=== PATIENT | male | born 1995 | race African-American/Black ===

== ENCOUNTER 2019-08-02 16:47 | Emergency (ER) | payer BC ==
--- NOTE | 2019-08-02 17:10 | EDM.PDOC ---
ED HPI GENERAL MEDICAL PROBLEM - General Chief Complaint: Allergic Reaction Stated Complaint: ALLERGIC REACTION Time Seen by Provider: 08/02/19 17:08 Source of Information: Reports: Patient History Limitations: Reports: No Limitations - History of Present Illness INITIAL COMMENTS - FREE TEXT/NARRATIVE: 23-year-old male who reports awakening 2 nights ago with itching on his neck and noticed a couple spots in this area. The following morning he noticed that he had some redness and itching over the outside of his right hand as well. Since that time he has persisted with the itching areas of rash on his neck that has not really gotten any worse but the pain, swelling and redness in his right hand has progressively worsened. It seems to be spreading up into his distal forearm. He reports the pain has progressively worsened with time as well. He rates pain as a 7/10. It is an aching and throbbing pain that is sharp with movement and palpation. He has had no fevers or chills. No nausea or vomiting. No difficulty breathing. There are no other areas of redness or rash. He doesn't know of anything that caused this. He was supposing bug bites but he does not remember being bitten by any bugs and he reports that he was completely asymptomatic the night prior to this occurring. There are no other associated signs or symptoms. There are no other modifying factors. Onset: Other (2 days ago) Duration: Getting Worse Location: Reports: Neck, Upper Extremity, Right (Right hand) Quality: Reports: Ache, Sharp, Throbbing Severity: Moderate Improves with: Reports: Rest Worsens with: Reports: Other (Palpation), Movement Context: Reports: Other (As above) Associated Symptoms: Reports: No Other Symptoms Treatments [employer]: Reports: Other (see below) (Nothing) Right hand Pain Score (Numeric/FACES): 7 - Related Data Allergies Allergy/AdvReac Type Severity Reaction Status Date / Time No Known Allergies Allergy Verified 08/02/19 17:09 Home Meds: Home Meds cephALEXin [Keflex] 750 mg PO TID 10 Days #90 cap 08/02/19 [Rx] Past Medical History - Past Health History Medical/Surgical History: Denies Medical/Surgical History (No chronic medical problems. 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.) ED ROS ALLERGIC REACTION - Review of Systems Review Of Systems: See Below Constitutional: Denies: Fever, Chills HEENT: Reports: No Symptoms Respiratory: Reports: No Symptoms Cardiovascular: Reports: No Symptoms Endocrine: Reports: No Symptoms GI/Abdominal: Reports: No Symptoms : Reports: No Symptoms Musculoskeletal: Reports: Other (Right hand with redness and swelling) Skin: Reports: Erythema Neurological: Reports: No Symptoms ED EXAM GENERAL NO PERIP PULSE - Physical Exam Exam: See Below Exam Limited By: No Limitations General Appearance: Alert, WD/WN, Mild Distress (He is nontoxic appearing though.) Eye Exam: Bilateral Eye: EOMI, Normal Inspection, PERRL Ears: Normal External Exam, Hearing Grossly Normal Nose: Normal Inspection, Normal Mucosa, No Blood Throat/Mouth: Normal Inspection, Normal Lips, Normal Oropharynx, Normal Voice, No Airway Compromise Head: Atraumatic, Normocephalic Neck: Supple, Non-Tender, Full Range of Motion, Other (Rash on left neck) Respiratory/Chest: No Respiratory Distress, Lungs Clear, Normal Breath Sounds, No Accessory Muscle Use, Chest Non-Tender Cardiovascular: Normal Peripheral Pulses, Regular Rate, Rhythm, No JVD GI/Abdominal: Normal Bowel Sounds, Soft, Non-Tender, No Distention Back Exam: Normal Inspection, Full Range of Motion Extremities: Increased Warmth, Other (Right hand pain with redness and swelling. He has full active range of motion in the right hand. There is no evidence of tenosynovitis. He has no tenderness over the deep space area of the right hand.) Neurological: Alert, Oriented, CN II-XII Intact, Normal Cognition, No Motor/ Sensory Deficits Skin Exam: Warm, Dry, Intact, No Rash, Erythema, Increased Warmth, Other (And swelling over the dorsal ulnar aspect of the right hand, wrist and distal forearm. There is increased warmth in this area. There are no open wounds. There is no fluctuant area.) Course - Vital Signs Last Recorded V/S: Last Vital Signs Temp 36.8 C 08/02/19 17:29 Pulse 84 08/02/19 17:29 Resp 16 08/02/19 17:29 BP 124/76 08/02/19 17:29 Pulse Ox 100 08/02/19 17:29 - Re-Assessments/Exams Free Text/Narrative Re-Assessment/Exam: 08/02/19 17:19: Patient with apparent infection/cellulitis in right hand. He also has an area on his right hand and his left neck that appear to be insect bites or an allergic response. He does not appear toxic. He is having no evidence of anaphylaxis or respiratory type problems. I will have the patient take Benadryl as needed for itching and ibuprofen as needed for pain. I will also place the patient on Keflex for the next 10 days. Precautions and reasons for return to the emergency department were discussed with the patient prior to discharge. Departure - Departure Time of Disposition: 17:25 Disposition: Home, Self-Care 01 Condition: Good Clinical Impression: Cellulitis of right hand, Rash - Discharge Information Prescriptions: cephALEXin [Keflex] 750 mg PO TID 10 Days #90 cap Instructions: Allergies, Adult, [id number], Cellulitis, Adult, [id number] Referrals: PCP,None [Primary Care Provider] - Forms: ED Department Discharge, ED Return to Work/School Form Additional Instructions: You appear to have an infection or cellulitis of your right hand. Those places on your right hand and your left neck may be insect bites or some type of other allergic reaction. You may take Benadryl D milligrams by mouth every 6 hours as needed for itching/allergic reaction. You may also take ibuprofen 600-800 mg by mouth every 6-8 hours as needed for pain. Medication as prescribed (Keflex 250 mg). Take probiotics or eat yogurt daily while you are on the antibiotics. No use with your right hand for the next 3 days. Back to the emergency department for marked increase in pain, increasing redness, increasing swelling, fever or any other concerning sign or symptom.
== END 2019-08-02 17:32 | disposition home or self-care (01) ==
LOC: FB.ED 16:47
DX: L03.113 Cellulitis of right upper limb (principal); R21 Rash and other nonspecific skin eruption
CPT/HCPCS: 99283

== ENCOUNTER 2021-05-25 10:41 | Observation (INO) | payer BC, MEDICAID ==
[2021-05-25] MEDS ORDERED: Morphine 4 MG/ML VIAL IVPUSH STA (11:01)
[2021-05-25] MEDS ORDERED: Ketorolac 30 MG/ML SDV IVPUSH STA (11:01)
[2021-05-25] MEDS: Sodium Chloride 0.9% 10 ML Syringe FLUSH PRN (11:05)
[2021-05-25] MEDS ORDERED: Sodium Chloride 0.9% 1,000 ML IV SCH ×3 (11:15→12:30)
[2021-05-25] MEDS ORDERED: Iopamidol 755 Mg/ML 75 ML Bottle IV ONE (11:19)
--- NOTE | 2021-05-25 12:12 | EDM.PDOC ---
ED HPI GENERAL MEDICAL PROBLEM - General Chief Complaint: Abdominal Pain Stated Complaint: PANCREATITIS Time Seen by Provider: 05/25/21 10:50 Source of Information: Reports: Patient History Limitations: Reports: No Limitations - History of Present Illness INITIAL COMMENTS - FREE TEXT/NARRATIVE: Patient presented to the ED because of abdominal pain over the epigastric and LUQ which started yesterday. The pain is sharp,10/10. There is no associated N/V/D. there is no fever, chills, cough/cold symptoms. There is no urinary symptoms or changes in bowel movements. Patient has a history of alcoholism and pancreatitis as a result of his alcoholism.He drinks 1/2-1 liter of vodka daily. His last drink was at 8 pm last night. Abdomen Pain Score (Numeric/FACES): 10 - Related Data Allergies Allergy/AdvReac Type Severity Reaction Status Date / Time No Known Allergies Allergy Verified 05/25/21 10:58 Home Meds: Home Meds Acetaminophen [Tylenol Extra Strength] 500 mg PO ASDIRECTED PRN 05/25/21 [History] Past Medical History - Past Health History Medical/Surgical History: Denies Medical/Surgical History (No chronic medical problems. 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.) ED ROS GENERAL - Review of Systems Review Of Systems: See Below Constitutional: Reports: No Symptoms HEENT: Reports: No Symptoms Respiratory: Reports: No Symptoms Cardiovascular: Reports: No Symptoms Endocrine: Reports: No Symptoms GI/Abdominal: Reports: Abdominal Pain : Reports: No Symptoms Musculoskeletal: Reports: No Symptoms, Neck Pain Skin: Reports: No Symptoms Neurological: Reports: No Symptoms Psychiatric: Reports: No Symptoms ED EXAM, GI/ABD - Physical Exam Exam: See Below Exam Limited By: No Limitations General Appearance: Alert, No Apparent Distress Ears: Normal External Exam, Normal Canal Nose: Normal Inspection, Normal Mucosa, No Blood Throat/Mouth: Normal Inspection, Normal Lips, Normal Teeth Head: Atraumatic, Normocephalic Neck: Normal Inspection Respiratory/Chest: No Respiratory Distress, Lungs Clear, Normal Breath Sounds, No Accessory Muscle Use, Chest Non-Tender Cardiovascular: Normal Peripheral Pulses, Regular Rate, Rhythm, No Edema, No Gallop, No JVD, No Murmur, No Rub GI/Abdominal Exam: Normal Bowel Sounds, Soft, Other (tenderness over the epihastric area and LUQ) Back Exam: Normal Inspection Extremities: Normal Inspection, Normal Range of Motion, Non-Tender Neurological: Alert, Oriented, CN II-XII Intact Psychiatric: Normal Affect, Normal Mood Skin Exam: Warm Course - Vital Signs Text/Narrative:: Lab/CT abd-pelvis result was reviewed and discussed with patient NPO NS 1 L bolus Toradol 30 mg IV x1 Morphine 4 mg IV x1 Last Recorded V/S: Last Vital Signs Temp 36.5 C 05/25/21 10:45 Pulse 97 05/25/21 10:45 Resp 18 05/25/21 10:45 BP 153/106 H 05/25/21 10:45 Pulse Ox 100 05/25/21 10:45 - Orders/Labs/Meds Orders: Active Orders 24 hr Category Date Time Status Sodium Chloride 0.9% [Normal Saline] 1,000 ml Med 05/25/21 11:15 Active IV ASDIRECTED Sodium Chloride 0.9% [Normal Saline] 1,000 ml Med 05/25/21 12:20 Active IV ASDIRECTED Sodium Chloride 0.9% [Saline Flush] Med 05/25/21 11:05 Active 10 ml FLUSH ASDIRECTED PRN Saline Lock Insert [OM.PC] Routine Oth 05/25/21 11:05 Ordered Medication Orders Sodium Chloride (Normal Saline) 1,000 mls @ 999 mls/hr IV ASDIRECTED SAMREEN Last Admin: 05/25/21 11:09 Dose: 999 mls/hr Documented by: SYLVIA Sodium Chloride (Normal Saline) 1,000 mls @ 125 mls/hr IV ASDIRECTED SAMREEN Last Admin: 05/25/21 12:30 Dose: 125 mls/hr Documented by: ARIAN Sodium Chloride (Sodium Chloride 0.9% 10 Ml Syringe) 10 ml FLUSH ASDIRECTED PRN PRN Reason: Keep Vein Open Last Admin: 05/25/21 11:05 Dose: 10 ml Documented by: ARIAN Labs: Laboratory Tests 05/25/21 05/25/21 05/25/21 Range/Units 11:25 11:25 11:25 WBC 10.0 (3.2-10.1) x10-3/uL RBC 4.53 (3.90-5.90) x10(6)uL Hgb 15.0 (12.9-17.7) g/dL Hct 44.2 (38.3-50.1) % MCV 97.6 (80.8-98.7) fL MCH 33.1 (27.0-33.3) pg MCHC 33.9 (28.7-35.3) g/dL RDW 15.5 H (12.4-15.0) % Plt Count 138 (117-477) x10(3)uL MPV 9.1 (6.7-11.0) fL Neut % (Auto) 82.9 H (40.3-71.8) % Lymph % (Auto) 10.7 L (15.8-45.3) % Ralls % (Auto) 5.4 L (5.5-15.2) % Eos % (Auto) 0.8 (0.1-6.8) % Baso % (Auto) 0.2 L (0.3-3.8) % Neut # (Auto) 8.3 H (1.7-6.9) x10-3/uL Lymph # (Auto) 1.1 (0.5-4.5) x10-3/uL Ralls # (Auto) 0.5 (0.0-1.2) x10-3/uL Eos # (Auto) 0.1 (0.0-0.6) x10-3/uL Baso # (Auto) 0.0 (0.0-0.3) x10-3/uL Sodium 139 (135-145) mmol/L Potassium 3.6 (3.5-5.3) mmol/L Chloride 100 (100-110) mmol/L Carbon Dioxide 24 (21-32) mmol/L BUN 6 L (7-18) mg/dL Creatinine 0.9 (0.70-1.30) mg/dL Est Cr Clr Drug Dosing 105.20 mL/min Estimated GFR (MDRD) > 60 (>60) BUN/Creatinine Ratio 6.7 L (9-20) Glucose 125 H (80-116) mg/dL Calcium 9.4 (8.6-10.2) mg/dL Total Bilirubin 1.1 (0.1-1.3) mg/dL AST 89 H (5-25) IU/L ALT 72 H (12-36) U/L Alkaline Phosphatase 91 (56-112) IU/L Total Protein 8.1 H (6.0-8.0) g/dL Albumin 4.3 (3.5-5.2) g/dL Globulin 3.8 g/dL Albumin/Globulin Ratio 1.1 Amylase 177 H (25-115) U/L Lipase > 1500 H (73-393) U/L Urine Color (YELLOW) Urine Appearance (CLEAR) Urine pH (5.0-6.5) Ur Specific [place] (1.010-1.025) Urine Protein (NEGATIVE) mg/dL Urine Glucose (UA) (NORMAL) mg/dL Urine Ketones (NEGATIVE) mg/dL Urine Occult Blood (NEGATIVE) Urine Nitrite (NEGATIVE) Urine Bilirubin (NEGATIVE) Urine Urobilinogen (NEGATIVE) mg/dL Ur Leukocyte Esterase (NEGATIVE) Urine RBC (0-5) Urine WBC (0-5) Ur Squamous Epith Cells (NS,R,O) Urine Bacteria (NS) Ethyl Alcohol (<0.03) % SARS-CoV-2 RNA (PAULINE) (NEGATIVE) 05/25/21 05/25/21 05/25/21 Range/Units 11:25 12:02 12:26 WBC (3.2-10.1) x10-3/uL RBC (3.90-5.90) x10(6)uL Hgb (12.9-17.7) g/dL Hct (38.3-50.1) % MCV (80.8-98.7) fL MCH (27.0-33.3) pg MCHC (28.7-35.3) g/dL RDW (12.4-15.0) % Plt Count (117-477) x10(3)uL MPV (6.7-11.0) fL Neut % (Auto) (40.3-71.8) % Lymph % (Auto) (15.8-45.3) % Ralls % (Auto) (5.5-15.2) % Eos % (Auto) (0.1-6.8) % Baso % (Auto) (0.3-3.8) % Neut # (Auto) (1.7-6.9) x10-3/uL Lymph # (Auto) (0.5-4.5) x10-3/uL Ralls # (Auto) (0.0-1.2) x10-3/uL Eos # (Auto) (0.0-0.6) x10-3/uL Baso # (Auto) (0.0-0.3) x10-3/uL Sodium (135-145) mmol/L Potassium (3.5-5.3) mmol/L Chloride (100-110) mmol/L Carbon Dioxide (21-32) mmol/L BUN (7-18) mg/dL Creatinine (0.70-1.30) mg/dL Est Cr Clr Drug Dosing mL/min Estimated GFR (MDRD) (>60) BUN/Creatinine Ratio (9-20) Glucose (80-116) mg/dL Calcium (8.6-10.2) mg/dL Total Bilirubin (0.1-1.3) mg/dL AST (5-25) IU/L ALT (12-36) U/L Alkaline Phosphatase (56-112) IU/L Total Protein (6.0-8.0) g/dL Albumin (3.5-5.2) g/dL Globulin g/dL Albumin/Globulin Ratio Amylase (25-115) U/L Lipase (73-393) U/L Urine Color Yellow (YELLOW) Urine Appearance Clear (CLEAR) Urine pH 6.0 (5.0-6.5) Ur Specific [place] 1.015 (1.010-1.025) Urine Protein Negative (NEGATIVE) mg/dL Urine Glucose (UA) Normal (NORMAL) mg/dL Urine Ketones 15 H (NEGATIVE) mg/dL Urine Occult Blood Negative (NEGATIVE) Urine Nitrite Negative (NEGATIVE) Urine Bilirubin Negative (NEGATIVE) Urine Urobilinogen Normal (NEGATIVE) mg/dL Ur Leukocyte Esterase Negative (NEGATIVE) Urine RBC Not seen (0-5) Urine WBC 0-5 (0-5) Ur Squamous Epith Cells Rare (NS,R,O) Urine Bacteria Occasional H (NS) Ethyl Alcohol < 0.03 (<0.03) % SARS-CoV-2 RNA (PAULINE) Negative (NEGATIVE) Meds: Medications Generic Name Dose Route Start Last Admin Trade Name Freq PRN Reason Stop Dose Admin Sodium Chloride 1,000 mls @ 999 mls/hr 05/25/21 11:15 05/25/21 11:09 Normal Saline IV 999 mls/hr ASDIRECTED SAMREEN Administration Sodium Chloride 1,000 mls @ 125 mls/hr 05/25/21 12:20 05/25/21 12:30 Normal Saline IV 125 mls/hr ASDIRECTED SAMREEN Administration Sodium Chloride 10 ml 05/25/21 11:05 05/25/21 11:05 Sodium Chloride 0.9% 10 Ml Syringe FLUSH 10 ml ASDIRECTED PRN Administration Keep Vein Open Discontinued Medications Generic Name Dose Route Start Last Admin Trade Name Huanq PRN Reason Stop Dose Admin Sodium Chloride 1,000 mls @ 999 mls/hr 05/25/21 12:30 Normal Saline IV ASDIRECTED SAMREEN Iopamidol 75 ml 05/25/21 11:19 05/25/21 11:40 Iopamidol 755 Mg/Ml 75 Ml Bottle IV 05/25/21 11:20 68 ml ONETIME ONE Administration Ketorolac Tromethamine 30 mg 05/25/21 11:01 05/25/21 11:08 Ketorolac 30 Mg/Ml Sdv IVPUSH 05/25/21 11:02 30 mg NOW STA Administration Morphine Sulfate 4 mg 05/25/21 11:01 05/25/21 11:08 Morphine 4 Mg/Ml Vial IVPUSH 05/25/21 11:02 4 mg NOW STA Administration Departure - Departure Time of Disposition: 13:00 Disposition: Refer to Observation Condition: Good Clinical Impression: Acute pancreatitis, Alcoholism - Discharge Information Referrals: PCP,None [Primary Care Provider] - Forms: ED Department Discharge Sepsis Event Note (ED) - Evaluation Sepsis Screening Result: Possible Sepsis Risk - Focused Exam Vital Signs: Vital Signs Temp Pulse Resp BP Pulse Ox 05/25/21 10:45 36.5 C 97 18 153/106 H 100 - My Orders Last 24 Hours: My Active Orders 05/25/21 11:05 Sodium Chloride 0.9% [Saline Flush] 10 ml FLUSH ASDIRECTED PRN Saline Lock Insert [OM.PC] Routine 05/25/21 11:15 Sodium Chloride 0.9% [Normal Saline] 1,000 ml IV ASDIRECTED 05/25/21 12:20 Sodium Chloride 0.9% [Normal Saline] 1,000 ml IV ASDIRECTED - Assessment/Plan Last 24 Hours: My Active Orders 05/25/21 11:05 Sodium Chloride 0.9% [Saline Flush] 10 ml FLUSH ASDIRECTED PRN Saline Lock Insert [OM.PC] Routine 05/25/21 11:15 Sodium Chloride 0.9% [Normal Saline] 1,000 ml IV ASDIRECTED 05/25/21 12:20 Sodium Chloride 0.9% [Normal Saline] 1,000 ml IV ASDIRECTED
--- NOTE | 2021-05-25 12:43 | CT ---
INDICATION: Abdominal pain. CT ABDOMEN AND PELVIS WITH CONTRAST: Spiral 3.75 mm axial sections were obtained through the abdomen with 68 mL of Isovue-370 at 1.9 cc/sec with sagittal and coronal reconstructions 05/25/21 - no comparisons. Total exam DLP was 363.59 milligray-cm. The lower lung vallejo and pleural spaces visualized appeared normal. The heart did not appear enlarged. No pericardial effusion was seen. The liver is enlarged and markedly low in density compatible with severe fatty liver. There is some fatty sparing in the inferior peripheral right lobe of the liver and peripherally in the right and left lobes near the diaphragm. No definite ductal dilatation was seen. No definite gallstones were seen. There is fluid surrounding the anterior posterior aspect of the pancreas extending inferiorly into the right paracolic gutter to a mild degree and just barely into the pelvis on the right centrally. Findings are compatible with pancreatitis with phlegmon of moderate degree with mostly the head of the pancreas appearing to be involved. The spleen appeared normal. The adrenal glands and kidneys were felt to be normal. There is also noted free fluid in the pelvis which likely is on the basis of pancreatitis. It extends into the post-vesicular pre-rectal area. No other retroperitoneal abnormality was identified. The appendix appeared normal visualized on axial images 85 to 90 and coronal images 35 to 48. No evidence of free air or bowel obstruction was identified. There is a dilated loop of jejunum which may be on the basis of paralytic ileus. Gas and stool is noted in the rectum. Bony structures appeared grossly intact. IMPRESSION: 1. Pancreatitis with phlegmon - fluid extending inferior to the pancreas into the paracolic gutter and into the pelvis. 2. Normal-appearing appendix. 3. Abnormal liver which appears enlarged and markedly low in density suggesting a severe fatty liver although a severe inflammatory process could also be present. Report was called to Dr. Miranda at 1207 hours 05/25/21. [facility]
[2021-05-25] MEDS ORDERED: Ondansetron 4 MG/2 ML SDV IV PRN (15:24)
[2021-05-25] MEDS ORDERED: Acetaminophen 650 MG Supp RECTAL PRN (15:27)
[2021-05-25] MEDS ORDERED: LORazepam 2 MG/ML SDV IVPUSH PRN (15:28)
[2021-05-25] MEDS: Morphine 4 MG/ML VIAL IVPUSH PRN ×2 (15:41→20:35)
[2021-05-25] MEDS: Ketorolac 30 MG/ML SDV IVPUSH SCH ×2 (16:52→23:41)
--- NOTE | 2021-05-25 17:09 | PCM.HP.2 ---
H&P History of Present Illness - General Date of Service: 05/25/21 Admit Problem/Dx: Admission Diagnosis/Problem Admission Diagnosis/Problem Acute pancreatitis Source of Information: Patient History Limitations: Reports: No Limitations - History of Present Illness Initial Comments - Free Text/Narative: Kera presented to ER today for worsening abdominal pain. History of chronic alcohol induced pancreatitis. He states that he started having kidney pain about 2 days ago, so was drinking mainly water and alcohol as that is how his previous pancreatitis episodes started and then started having abdominal pain yesterday. Shortness of breath with the pain. Locates pain mainly in LUQ, rates 7/10 now. Nausea but no vomiting or diarrhea. He has 2-3 bowel movements a day which are regular. His last drink was last night around 8 pm. He lost his uncle in the past week and states he has been drinking heavier since. Denies any fevers, chills, sore throat, cough, chest pain, dysuria, frequency, hematuria, rash. He has had tremors and diaphoresis in past with alcohol withdrawal but no episodes of withdrawal seizures or hallucinations. He took some Tylenol yesterday for pa in but did not help. In ER: WBC 10.0. Lipase >1500, Amylase 177. EtOH <0.03. Covid negative. CT lucy wed acute pancreatitis. Chemistry unremarkable. AST 89, ALT 72. UA 15 ketones otherwise negative. Received Toradol, Morphine 4 mg and 1 liter of NS in the ER, pain came down from 10/10 to 7/10. Abdomen Pain Score (Numeric/FACES): 7 - Related Data Allergies/Adverse Reactions: Allergies Allergy/AdvReac Type Severity Reaction Status Date / Time No Known Allergies Allergy Verified 05/25/21 10:58 Home Medications: Home Meds Acetaminophen [Tylenol Extra Strength] 500 mg PO ASDIRECTED PRN 05/25/21 [History] Past Medical History - Past Health History Medical/Surgical History: Denies Medical/Surgical History (No chronic medical problems. Surgical history as detailed below.) Gastrointestinal History: Reports: Fatty Liver, Pancreatitis - Past Surgical History Musculoskeletal Surgical History: Reports: ORIF Other Musculoskeletal Surgeries/Procedures:: Hand surgery Social & Family History - Tobacco Use Tobacco Use Status *Q: Former Tobacco User Years of Tobacco use: 2 Used Tobacco, but Quit: No Second Hand Smoke Exposure: No - Caffeine Use Caffeine Use: Reports: None - Alcohol Use Days Per Week of Alcohol Use: 7 Number of Drinks Per Day: 1 Total Drinks Per Week: 7 Date of Last Drink: 05/24/21 Time of Last Drink: 20:00 - Recreational Drug Use Recreational Drug Use: No - Living Situation & Occupation 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 Exam - Exam Exam: See Below - Vital Signs Vital Signs: Last Vital Signs Temp 97.3 F 05/25/21 14:44 Pulse 65 05/25/21 14:44 Resp 19 05/25/21 14:44 BP 145/103 H 05/25/21 14:44 Pulse Ox 100 05/25/21 14:44 Weight: 133 lb - Exam General: Alert, Oriented, Cooperative. No: Mild Distress HEENT: PERRLA, EOMI, Hearing Intact, Mucosa Moist & [place], Posterior Pharynx Clear Neck: Supple, Trachea Midline Lungs: Clear to Auscultation, Normal Respiratory Effort Cardiovascular: Regular Rate, Regular Rhythm GI/Abdominal Exam: Normal Bowel Sounds, Soft, No Distention, Guarding, Rebound, Tender (LUQ, mild TTP other quadrants) (Male) Exam: Deferred Rectal (Males) Exam: Deferred Extremities: No Pedal Edema, Normal Capillary Refill Peripheral Pulses: 2+: Radial (L), Radial (R), Dorsalis Pedis (L), Dorsalis Pedis (R) Skin: Warm, Dry, Intact Neuro Extensive - Motor, Sensory, Reflexes: CN II-XII Intact, Normal Gait. No: Tremor Psychiatric: No: Withdrawal Symptoms - Patient Data Lab Results Last 24 hrs: Laboratory Results - last 24 hr 05/25/21 05/25/21 05/25/21 Range/Units 11:25 11:25 11:25 WBC 10.0 (3.2-10.1) x10-3/uL RBC 4.53 (3.90-5.90) x10(6)uL Hgb 15.0 (12.9-17.7) g/dL Hct 44.2 (38.3-50.1) % MCV 97.6 (80.8-98.7) fL MCH 33.1 (27.0-33.3) pg MCHC 33.9 (28.7-35.3) g/dL RDW 15.5 H (12.4-15.0) % Plt Count 138 (117-477) x10(3)uL MPV 9.1 (6.7-11.0) fL Neut % (Auto) 82.9 H (40.3-71.8) % Lymph % (Auto) 10.7 L (15.8-45.3) % [place] % (Auto) 5.4 L (5.5-15.2) % Eos % (Auto) 0.8 (0.1-6.8) % Baso % (Auto) 0.2 L (0.3-3.8) % Neut # (Auto) 8.3 H (1.7-6.9) x10-3/uL Lymph # (Auto) 1.1 (0.5-4.5) x10-3/uL [place] # (Auto) 0.5 (0.0-1.2) x10-3/uL Eos # (Auto) 0.1 (0.0-0.6) x10-3/uL Baso # (Auto) 0.0 (0.0-0.3) x10-3/uL Sodium 139 (135-145) mmol/L Potassium 3.6 (3.5-5.3) mmol/L Chloride 100 (100-110) mmol/L Carbon Dioxide 24 (21-32) mmol/L BUN 6 L (7-18) mg/dL Creatinine 0.9 (0.70-1.30) mg/dL Est Cr Clr Drug Dosing 105.20 mL/min Estimated GFR (MDRD) > 60 (>60) BUN/Creatinine Ratio 6.7 L (9-20) Glucose 125 H (80-116) mg/dL Calcium 9.4 (8.6-10.2) mg/dL Total Bilirubin 1.1 (0.1-1.3) mg/dL AST 89 H (5-25) IU/L ALT 72 H (12-36) U/L Alkaline Phosphatase 91 (56-112) IU/L Total Protein 8.1 H (6.0-8.0) g/dL Albumin 4.3 (3.5-5.2) g/dL Globulin 3.8 g/dL Albumin/Globulin Ratio 1.1 Amylase 177 H (25-115) U/L Lipase > 1500 H (73-393) U/L Urine Color (YELLOW) Urine Appearance (CLEAR) Urine pH (5.0-6.5) Ur Specific [place] (1.010-1.025) Urine Protein (NEGATIVE) mg/dL Urine Glucose (UA) (NORMAL) mg/dL Urine Ketones (NEGATIVE) mg/dL Urine Occult Blood (NEGATIVE) Urine Nitrite (NEGATIVE) Urine Bilirubin (NEGATIVE) Urine Urobilinogen (NEGATIVE) mg/dL Ur Leukocyte Esterase (NEGATIVE) Urine RBC (0-5) Urine WBC (0-5) Ur Squamous Epith Cells (NS,R,O) Urine Bacteria (NS) Ethyl Alcohol (<0.03) % SARS-CoV-2 RNA (PAULINE) (NEGATIVE) 05/25/21 05/25/21 05/25/21 Range/Units 11:25 12:02 12:26 WBC (3.2-10.1) x10-3/uL RBC (3.90-5.90) x10(6)uL Hgb (12.9-17.7) g/dL Hct (38.3-50.1) % MCV (80.8-98.7) fL MCH (27.0-33.3) pg MCHC (28.7-35.3) g/dL RDW (12.4-15.0) % Plt Count (117-477) x10(3)uL MPV (6.7-11.0) fL Neut % (Auto) (40.3-71.8) % Lymph % (Auto) (15.8-45.3) % [place] % (Auto) (5.5-15.2) % Eos % (Auto) (0.1-6.8) % Baso % (Auto) (0.3-3.8) % Neut # (Auto) (1.7-6.9) x10-3/uL Lymph # (Auto) (0.5-4.5) x10-3/uL [place] # (Auto) (0.0-1.2) x10-3/uL Eos # (Auto) (0.0-0.6) x10-3/uL Baso # (Auto) (0.0-0.3) x10-3/uL Sodium (135-145) mmol/L Potassium (3.5-5.3) mmol/L Chloride (100-110) mmol/L Carbon Dioxide (21-32) mmol/L BUN (7-18) mg/dL Creatinine (0.70-1.30) mg/dL Est Cr Clr Drug Dosing mL/min Estimated GFR (MDRD) (>60) BUN/Creatinine Ratio (9-20) Glucose (80-116) mg/dL Calcium (8.6-10.2) mg/dL Total Bilirubin (0.1-1.3) mg/dL AST (5-25) IU/L ALT (12-36) U/L Alkaline Phosphatase (56-112) IU/L Total Protein (6.0-8.0) g/dL Albumin (3.5-5.2) g/dL Globulin g/dL Albumin/Globulin Ratio Amylase (25-115) U/L Lipase (73-393) U/L Urine Color Yellow (YELLOW) Urine Appearance Clear (CLEAR) Urine pH 6.0 (5.0-6.5) Ur Specific [place] 1.015 (1.010-1.025) Urine Protein Negative (NEGATIVE) mg/dL Urine Glucose (UA) Normal (NORMAL) mg/dL Urine Ketones 15 H (NEGATIVE) mg/dL Urine Occult Blood Negative (NEGATIVE) Urine Nitrite Negative (NEGATIVE) Urine Bilirubin Negative (NEGATIVE) Urine Urobilinogen Normal (NEGATIVE) mg/dL Ur Leukocyte Esterase Negative (NEGATIVE) Urine RBC Not seen (0-5) Urine WBC 0-5 (0-5) Ur Squamous Epith Cells Rare (NS,R,O) Urine Bacteria Occasional H (NS) Ethyl Alcohol < 0.03 (<0.03) % SARS-CoV-2 RNA (PAULINE) Negative (NEGATIVE) Result Diagrams: 05/25/21 11:25 05/25/21 11:25 Sepsis Event Note - Evaluation Sepsis Screening Result: Possible Sepsis Risk - Focused Exam Vital Signs: Vital Signs Temp Pulse Resp BP Pulse Ox 05/25/21 14:44 97.3 F 65 19 145/103 H 100 05/25/21 10:45 97.7 F 97 18 153/106 H 100 *Q Meaningful Use (ADM) - VTE Risk Assess *Q Each Risk Factor Represents 1 Point: None Total Score 1 Point Risk Factors: 0 Each Risk Factor Represents 2 Points: None Total Score 2 Point Risk Factors: 0 Each Risk Factor Represents 3 Points: None Total Score 3 Point Risk Factors: 0 Each Risk Factor Represents 5 Points: None Total Score 5 Point Risk Factors: 0 Venous Thromboembolism Risk Factor Score *Q: 0 - Problem List (1) Acute pancreatitis SNOMED Code(s): 819341153 ICD Code: K85.90 - ACUTE PANCREATITIS WITHOUT NECROSIS OR INFECTION, UNSP Status: Acute Current Visit: Yes Qualifiers: Pancreatitis type: alcohol induced Acute pancreatitis complication: no infection or necrosis Qualified Code(s): K85.20 - Alcohol induced acute pancreatitis without necrosis or infection (2) Alcoholism SNOMED Code(s): 9572068 ICD Code: F10.20 - ALCOHOL DEPENDENCE, UNCOMPLICATED Status: Acute Current Visit: Yes Problem List Initiated/Reviewed/Updated: Yes Orders Last 24hrs: Active Orders 24 hr Category Date Time Status Patient Status [ADT] Routine ADT 05/25/21 15:24 Active Ambulate [RC] PER UNIT ROUTINE Care 05/25/21 15:24 Active CIWAA Assessment [RC] Q4H Care 05/25/21 15:28 Active Oxygen Therapy [RC] PRN Care 05/25/21 15:24 Active Up ad Jess [RC] ASDIRECTED Care 05/25/21 15:24 Active VTE/DVT Education [RC] Per Unit Routine Care 05/25/21 15:24 Active Vital Signs [RC] Q4H Care 05/25/21 15:24 Active Nothing per Oral Now Diet [DIET] Diet 05/25/21 Dinner Active BASIC METABOLIC PANEL,BMP [CHEM] Routine Lab 05/26/21 06:00 Ordered LIPASE [CHEM] Routine Lab 05/26/21 06:00 Ordered Acetaminophen [Tylenol] Med 05/25/21 15:27 Active 650 mg RECTAL Q4H PRN Ketorolac [Toradol] Med 05/25/21 17:00 Active 30 mg IVPUSH Q6H LORazepam [Ativan] Med 05/25/21 15:28 Active See Protocol IVPUSH ASDIRECTED PRN Morphine Med 05/25/21 15:27 Active 4 mg IVPUSH Q4H PRN Ondansetron [Zofran] Med 05/25/21 15:24 Active 4 mg IV Q6H PRN Sodium Chloride 0.9% [Normal Saline] 1,000 ml Med 05/25/21 11:15 Active IV ASDIRECTED Sodium Chloride 0.9% [Saline Flush] Med 05/25/21 11:05 Active 10 ml FLUSH ASDIRECTED PRN Oral Care [OM.PC] Routine Oth 05/25/21 15:30 Ordered Resuscitation Status Routine Resus Stat 05/25/21 15:24 Ordered Medication Orders Acetaminophen (Acetaminophen 650 Mg Supp) 650 mg RECTAL Q4H PRN PRN Reason: Pain (moderate 4-6) Sodium Chloride (Normal Saline) 1,000 mls @ 999 mls/hr IV ASDIRECTED SAMREEN Last Admin: 05/25/21 11:09 Dose: 999 mls/hr Documented by: SYLVIA Ketorolac Tromethamine (Ketorolac 30 Mg/Ml Sdv) 30 mg IVPUSH Q6H SAMREEN Stop: 05/27/21 17:01 Last Admin: 05/25/21 16:52 Dose: 30 mg Documented by: YENI Lorazepam (Lorazepam 2 Mg/Ml Sdv) 0 mg IVPUSH ASDIRECTED PRN; Protocol PRN Reason: Withdrawal Symptoms Morphine Sulfate (Morphine 4 Mg/Ml Vial) 4 mg IVPUSH Q4H PRN PRN Reason: Pain (severe 7-10) Last Admin: 05/25/21 15:41 Dose: 4 mg Documented by: YENI Ondansetron HCl (Ondansetron 4 Mg/2 Ml Sdv) 4 mg IV Q6H PRN PRN Reason: Nausea/Vomiting Sodium Chloride (Sodium Chloride 0.9% 10 Ml Syringe) 10 ml FLUSH ASDIRECTED PRN PRN Reason: Keep Vein Open Last Admin: 05/25/21 11:05 Dose: 10 ml Documented by: ARIAN Assessment/Plan Comment:: 1. Admit for observation for acute alcohol induced pancreatitis. 2. Pancreatitis: Lipase & BMP tomorrow. NPO, oral swabs as needed. NS at 125 ml/hr. Toradol 30 mg IV q6h, Morphine 4 mg IV q4h as needed. Tylenol 650 mg MO q4h as needed, change to orals once diet advanced. 3. Alcohol abuse: ROOSEVELTWAA assessment, Lorazepam per withdrawal protocol. 4. Diet: NPO. 5. Activity: as tolerated. 6. DVT prophylaxis: ambulate. 7. CODE STATUS: FULL. 8. Discharge planning: anticipate 24-48 hours of IV fluids, pain management and treating for withdrawal symptoms. Discharge once stable. - Mortality Measure Prognosis:: Good
[2021-05-25] MEDS: Sodium Chloride 0.9% 1,000 ML IV SCH (20:38)
[2021-05-26] MEDS: Ketorolac 30 MG/ML SDV IVPUSH SCH ×4 (04:31→22:49)
[2021-05-26] MEDS: Sodium Chloride 0.9% 1,000 ML IV SCH ×2 (04:34→12:44)
[2021-05-26] MEDS: Morphine 4 MG/ML VIAL IVPUSH PRN ×2 (05:48→10:08)
[2021-05-26] MEDS ORDERED: LORazepam 0.5 MG Tab PO PRN (17:21)
--- NOTE | 2021-05-26 17:21 | PCM.PN ---
- General Info Date of Service: 05/26/21 Subjective Update: He states his pain is about 6/10 this morning wanted to hold off on ice chips. Then later in the morning he asked for ice chips, & sips of water, which he tolerated. His diet was advanced to clears and now soft. He has been urinating well, starting to have some tremors but no bowel movement. Pain improving. - Patient Data Vitals - Most Recent: Last Vital Signs Temp 97 F 05/26/21 12:00 Pulse 84 05/26/21 12:00 Resp 19 05/26/21 12:00 BP 129/92 H 05/26/21 12:00 Pulse Ox 100 05/26/21 12:00 Weight - Most Recent: 133 lb I&O - Last 24 Hours: Intake & Output 05/26/21 05/26/21 05/26/21 06:59 14:59 22:59 Intake Total 1718 Balance 1718 Lab Results Last 24 Hours: Laboratory Results - last 24 hr 05/26/21 05/26/21 Range/Units 06:10 06:10 Sodium 140 (135-145) mmol/L Potassium 3.4 L (3.5-5.3) mmol/L Chloride 104 (100-110) mmol/L Carbon Dioxide 24 (21-32) mmol/L BUN 3 L (7-18) mg/dL Creatinine 0.8 (0.70-1.30) mg/dL Est Cr Clr Drug Dosing 118.35 mL/min Estimated GFR (MDRD) > 60 (>60) BUN/Creatinine Ratio 3.8 L (9-20) Glucose 108 (80-116) mg/dL Calcium 8.4 L (8.6-10.2) mg/dL Lipase 2294 H (73-393) U/L Med Orders - Current: Current Medications Acetaminophen (Acetaminophen 650 Mg Supp) 650 mg RECTAL Q4H PRN PRN Reason: Pain (moderate 4-6) Sodium Chloride (Normal Saline) 1,000 mls @ 999 mls/hr IV ASDIRECTED [facility] Last Admin: 05/25/21 11:09 Dose: 999 mls/hr Documented by: Sodium Chloride (Normal Saline) 1,000 mls @ 125 mls/hr IV ASDIRECTED [facility] Last Admin: 05/26/21 12:44 Dose: 125 mls/hr Documented by: Ketorolac Tromethamine (Ketorolac 30 Mg/Ml Sdv) 30 mg IVPUSH Q6H SAMREEN Stop: 05/27/21 17:01 Last Admin: 05/26/21 11:03 Dose: 30 mg Documented by: Lorazepam (Lorazepam 2 Mg/Ml Sdv) 0 mg IVPUSH ASDIRECTED PRN; Protocol PRN Reason: Withdrawal Symptoms Morphine Sulfate (Morphine 4 Mg/Ml Vial) 4 mg IVPUSH Q4H PRN PRN Reason: Pain (severe 7-10) Last Admin: 05/26/21 10:08 Dose: 4 mg Documented by: Ondansetron HCl (Ondansetron 4 Mg/2 Ml Sdv) 4 mg IV Q6H PRN PRN Reason: Nausea/Vomiting Sodium Chloride (Sodium Chloride 0.9% 10 Ml Syringe) 10 ml FLUSH ASDIRECTED PRN PRN Reason: Keep Vein Open Last Admin: 05/25/21 11:05 Dose: 10 ml Documented by: Discontinued Medications Sodium Chloride (Normal Saline) 1,000 mls @ 999 mls/hr IV ASDIRECTED SAMREEN Sodium Chloride (Normal Saline) 1,000 mls @ 125 mls/hr IV ASDIRECTED [facility] Last Admin: 05/25/21 12:30 Dose: 125 mls/hr Documented by: Iopamidol (Iopamidol 755 Mg/Ml 75 Ml Bottle) 75 ml IV ONETIME ONE Stop: 05/25/21 11:20 Last Admin: 05/25/21 11:40 Dose: 68 ml Documented by: Ketorolac Tromethamine (Ketorolac 30 Mg/Ml Sdv) 30 mg IVPUSH NOW STA Stop: 05/25/21 11:02 Last Admin: 05/25/21 11:08 Dose: 30 mg Documented by: Morphine Sulfate (Morphine 4 Mg/Ml Vial) 4 mg IVPUSH NOW STA Stop: 05/25/21 11:02 Last Admin: 05/25/21 11:08 Dose: 4 mg Documented by: - Exam General: Alert, Oriented, Cooperative, No Acute Distress Lungs: Clear to Auscultation Cardiovascular: Regular Rate, Regular Rhythm GI/Abdominal Exam: Normal Bowel Sounds, Soft, No Distention, Guarding, Tender (LUQ) Extremities: No Pedal Edema Peripheral Pulses: 2+: Radial (L), Radial (R), Dorsalis Pedis (L), Dorsalis Pedis (R) - Patient Data Lab Results Last 24 hrs: Laboratory Results - last 24 hr 05/26/21 05/26/21 Range/Units 06:10 06:10 Sodium 140 (135-145) mmol/L Potassium 3.4 L (3.5-5.3) mmol/L Chloride 104 (100-110) mmol/L Carbon Dioxide 24 (21-32) mmol/L BUN 3 L (7-18) mg/dL Creatinine 0.8 (0.70-1.30) mg/dL Est Cr Clr Drug Dosing 118.35 mL/min Estimated GFR (MDRD) > 60 (>60) BUN/Creatinine Ratio 3.8 L (9-20) Glucose 108 (80-116) mg/dL Calcium 8.4 L (8.6-10.2) mg/dL Lipase 2294 H (73-393) U/L Result Diagrams: 05/25/21 11:25 05/26/21 06:10 Sepsis Event Note - Evaluation Sepsis Screening Result: No Definite Risk - Focused Exam Vital Signs: Vital Signs Temp Pulse Resp BP Pulse Ox 05/26/21 12:00 97 F 84 19 129/92 H 100 05/26/21 08:00 97.8 F 87 18 149/91 H 100 - Problem List & Annotations (1) Acute pancreatitis SNOMED Code(s): 393983181 Code(s): K85.90 - ACUTE PANCREATITIS WITHOUT NECROSIS OR INFECTION, UNSP Status: Acute Current Visit: Yes Qualifiers: Pancreatitis type: alcohol induced Acute pancreatitis complication: no infection or necrosis Qualified Code(s): K85.20 - Alcohol induced acute pancreatitis without necrosis or infection (2) Alcoholism SNOMED Code(s): 7638523 Code(s): F10.20 - ALCOHOL DEPENDENCE, UNCOMPLICATED Status: Acute Current Visit: Yes - Problem List Review Problem List Initiated/Reviewed/Updated: Yes - My Orders Last 24 Hours: My Active Orders 05/25/21 17:00 Ketorolac [Toradol] 30 mg IVPUSH Q6H 05/26/21 Dinner Soft Diet [DIET] - Plan Plan:: 1. Pancreatitis: Lipase & BMP tomorrow. Lipase 2294, was >1500(2392) yesterday. NS at 125 ml/hr. Toradol 30 mg IV q6h, Morphine 4 mg IV q4h as needed. Tylenol 650 mg po q4h as needed, change to orals once diet advanced. 2. Alcohol abuse: CIWAA assessment, Lorazepam per withdrawal protocol. 3. Diet: advance as tolerated. 4. Discharge planning: anticipate 24-48 hours of IV fluids, pain management and treating for withdrawal symptoms. Discharge once stable.
[2021-05-26] MEDS ORDERED: Acetaminophen 500 MG Tab PO PRN (17:22)
[2021-05-26] MEDS: Sodium Chloride 0.9% 10 ML Syringe FLUSH PRN (22:50)
[2021-05-27] MEDS: Ketorolac 30 MG/ML SDV IVPUSH SCH ×2 (05:27→11:22)
[2021-05-27] MEDS: Sodium Chloride 0.9% 10 ML Syringe FLUSH PRN (05:29)
--- NOTE | 2021-05-27 19:23 | PCM.DCSUM1 ---
Discharge Summary - Hospital Course HPI Initial Comments: Kera presented to ER today for worsening abdominal pain. History of chronic alcohol induced pancreatitis. He states that he started having kidney pain about 2 days ago, so was drinking mainly water and alcohol as that is how his previous pancreatitis episodes started and then started having abdominal pain yesterday. Shortness of breath with the pain. Locates pain mainly in LUQ, rates 7/10 now. Nausea but no vomiting or diarrhea. He has 2-3 bowel movements a day which are regular. His last drink was last night around 8 pm. He lost his uncle in the past week and states he has been drinking heavier since. Denies any fevers, chills, sore throat, cough, chest pain, dysuria, frequency, hematuria, rash. He has had tremors and diaphoresis in past with alcohol withdrawal but no episodes of withdrawal seizures or hallucinations. He took some Tylenol yesterday for pain but did not help. In ER: WBC 10.0. Lipase >1500, Amylase 177. EtOH <0.03. Covid negative. CT showed acute pancreatitis. Chemistry unremarkable. AST 89, ALT 72. UA 15 ketones otherwise negative. Received Toradol, Morphine 4 mg and 1 liter of NS in the ER, pain came down from 10/10 to 7/10. Diagnosis: Stroke: No - Discharge Data Discharge Date: 05/27/21 Discharge Disposition: Home, Self-Care 01 Condition: Good - Referral to Home Health Primary Care Physician: PCP None - Discharge Diagnosis/Problem(s) (1) Acute pancreatitis SNOMED Code(s): 086008894 ICD Code: K85.90 - ACUTE PANCREATITIS WITHOUT NECROSIS OR INFECTION, UNSP Status: Acute Problem Details: improving Qualifiers: Pancreatitis type: alcohol induced Acute pancreatitis complication: no infection or necrosis Qualified Code(s): K85.20 - Alcohol induced acute pancreatitis without necrosis or infection (2) Alcoholism SNOMED Code(s): 2326700 ICD Code: F10.20 - ALCOHOL DEPENDENCE, UNCOMPLICATED Status: Acute - Patient Summary/Data Hospital Course: He admitted for acute alcohol induced pancreatitis, was on bowel rest, NPO first day. NS until diet was advanced. WBC 10.0. Chemistry has stayed stable with K 3.4. Cr 0.9. Lipase came down from >1500(2392), 2294, 1342 today. Advance ice chips/water on , advanced to clears and then soft weds pm. He did not have any worsening of abdominal pain. He had CIWAA protocol but only used 1 dose of Lorazepam oral last evening. He was up to bathroom by himself and had BM this morning. Follow up with Dr Abad next week. - Patient Instructions Diet: Usual Diet as Tolerated, No Alcoholic Beverages Activity: As Tolerated Notify Provider of: Fever, Increased Pain, Nausea and/or Vomiting Other/Special Instructions: Follow up with Dr Abad in 3-4 days for recheck of your lipase. - Discharge Plan *PRESCRIPTION DRUG MONITORING PROGRAM REVIEWED*: Yes *COPY OF PRESCRIPTION DRUG MONITORING REPORT IN PATIENT LAURENCE: No Prescriptions/Med Rec: Acetaminophen/HYDROcodone [HYDROcodone-Acetaminophen 5-325 MG *] 1 tab PO Q6H PRN #10 each PRN Reason: Breakthrough Pain Ibuprofen 400 mg PO Q4H PRN #30 tablet PRN Reason: Pain Home Medications: Home Meds Acetaminophen [Tylenol Extra Strength] 500 mg PO Q6H PRN tablet 05/27/21 [Rx] Acetaminophen/HYDROcodone [HYDROcodone-Acetaminophen 5-325 MG *] 1 tab PO Q6H PRN #10 each 05/27/21 [Rx] Ibuprofen 400 mg PO Q4H PRN #30 tablet 05/27/21 [Rx] Patient Handouts: Acute Pancreatitis, [id number], Venous Thromboembolism Prevention Forms: ED Department Discharge Referrals: PCP,None [Primary Care Provider] - - Discharge Summary/Plan Comment DC Time >30 min.: No Total # of Minutes for Discharge Time: 15 min - General Info Date of Service: 05/27/21 Subjective Update: He is feeling better, tolerated advancing diet and pain is better. He has been urinating well. No DTs or hallucinations. - Patient Data Vitals - Most Recent: Last Vital Signs Temp 98.4 F 05/27/21 08:00 Pulse 104 H 05/27/21 08:00 Resp 16 05/27/21 08:00 BP 147/60 H 05/27/21 08:00 Pulse Ox 99 05/27/21 08:00 Weight - Most Recent: 133 lb Lab Results - Last 24 hrs: Laboratory Results - last 24 hr 05/27/21 05/27/21 Range/Units 06:06 06:06 Sodium 142 (135-145) mmol/L Potassium 3.4 L (3.5-5.3) mmol/L Chloride 105 (100-110) mmol/L Carbon Dioxide 26 (21-32) mmol/L BUN 4 L (7-18) mg/dL Creatinine 0.9 (0.70-1.30) mg/dL Est Cr Clr Drug Dosing 105.20 mL/min Estimated GFR (MDRD) > 60 (>60) BUN/Creatinine Ratio 4.4 L (9-20) Glucose 96 (80-116) mg/dL Calcium 8.8 (8.6-10.2) mg/dL Total Bilirubin 0.7 (0.1-1.3) mg/dL AST 43 H D (5-25) IU/L ALT 42 H D (12-36) U/L Alkaline Phosphatase 82 (56-112) IU/L Total Protein 6.9 (6.0-8.0) g/dL Albumin 3.5 (3.5-5.2) g/dL Globulin 3.4 g/dL Albumin/Globulin Ratio 1.0 Lipase 1342 H (73-393) U/L Med Orders - Current: Current Medications Discontinued Medications Acetaminophen (Acetaminophen 650 Mg Supp) 650 mg RECTAL Q4H PRN PRN Reason: Pain (moderate 4-6) Acetaminophen (Acetaminophen 500 Mg Tab) 500 mg PO Q6H PRN PRN Reason: Pain Last Admin: 05/26/21 21:29 Dose: 500 mg Documented by: Sodium Chloride (Normal Saline) 1,000 mls @ 999 mls/hr IV ASDIRECTED [facility] Last Admin: 05/25/21 11:09 Dose: 999 mls/hr Documented by: Sodium Chloride (Normal Saline) 1,000 mls @ 999 mls/hr IV ASDIRECTED SAMREEN Sodium Chloride (Normal Saline) 1,000 mls @ 125 mls/hr IV ASDIRECTED [facility] Last Admin: 05/25/21 12:30 Dose: 125 mls/hr Documented by: Sodium Chloride (Normal Saline) 1,000 mls @ 125 mls/hr IV ASDIRECTED SAMREEN Last Admin: 05/26/21 12:44 Dose: 125 mls/hr Documented by: Iopamidol (Iopamidol 755 Mg/Ml 75 Ml Bottle) 75 ml IV ONETIME ONE Stop: 05/25/21 11:20 Last Admin: 05/25/21 11:40 Dose: 68 ml Documented by: Ketorolac Tromethamine (Ketorolac 30 Mg/Ml Sdv) 30 mg IVPUSH NOW STA Stop: 05/25/21 11:02 Last Admin: 05/25/21 11:08 Dose: 30 mg Documented by: Ketorolac Tromethamine (Ketorolac 30 Mg/Ml Sdv) 30 mg IVPUSH Q6H SAMREEN Stop: 05/27/21 17:01 Last Admin: 05/27/21 11:22 Dose: 30 mg Documented by: Lorazepam (Lorazepam 2 Mg/Ml Sdv) 0 mg IVPUSH ASDIRECTED PRN; Protocol PRN Reason: Withdrawal Symptoms Lorazepam (Lorazepam 0.5 Mg Tab) 0 mg PO ASDIRECTED PRN; Protocol PRN Reason: Withdrawal Symptoms Last Admin: 05/26/21 21:29 Dose: 0.5 mg Documented by: Morphine Sulfate (Morphine 4 Mg/Ml Vial) 4 mg IVPUSH NOW STA Stop: 05/25/21 11:02 Last Admin: 05/25/21 11:08 Dose: 4 mg Documented by: Morphine Sulfate (Morphine 4 Mg/Ml Vial) 4 mg IVPUSH Q4H PRN PRN Reason: Pain (severe 7-10) Last Admin: 05/26/21 10:08 Dose: 4 mg Documented by: Ondansetron HCl (Ondansetron 4 Mg/2 Ml Sdv) 4 mg IV Q6H PRN PRN Reason: Nausea/Vomiting Sodium Chloride (Sodium Chloride 0.9% 10 Ml Syringe) 10 ml FLUSH ASDIRECTED PRN PRN Reason: Keep Vein Open Last Admin: 05/27/21 05:29 Dose: 10 ml Documented by: - Exam General: Reports: Alert, Oriented, Cooperative, No Acute Distress Neck: Reports: Supple, Trachea Midline Lungs: Reports: Clear to Auscultation, Normal Respiratory Effort Cardiovascular: Reports: Regular Rate, Regular Rhythm GI/Abdominal Exam: Normal Bowel Sounds, Soft, No Distention, Tender (mild LUQ). No: Guarding (Male) Exam: Deferred Rectal (Males) Exam: Deferred Extremities: No Pedal Edema, Normal Capillary Refill Skin: Reports: Warm, Dry, Intact
== END 2021-05-27 13:00 | disposition home or self-care (01) ==
LOC: FB.ED 10:41 → FB.MS 14:13
PROVIDERS: ADMIT Family Medicine; ATTEND Family Medicine
DX: K85.20 Alcohol induced acute pancreatitis without necrosis or infection (principal); K86.0 Alcohol-induced chronic pancreatitis; F10.20 Alcohol dependence, uncomplicated; Y90.0 Blood alcohol level of less than 20 mg/100 ml; Z87.891 Personal history of nicotine dependence; Z20.822 Contact with and (suspected) exposure to COVID-19
CPT/HCPCS: 36415; 74177; 80048; 80053; 80307; 81001; 82150; 83690; 85025; 87635; 96374; 96375; 96376; 99285; A9270; G0378; J1885; J2270; J7030; Q9967; U0002

== ENCOUNTER 2022-05-12 08:41 | Inpatient (IN) | payer BC, MEDICAID ==
[2022-05-12] MEDS ORDERED: Sodium Chloride 0.9% 10 ML Syringe FLUSH PRN (09:00)
[2022-05-12] MEDS: Sodium Chloride 0.9% 1,000 ML IV SCH ×3 (09:00→18:05)
[2022-05-12] MEDS ORDERED: Ondansetron 4 MG/2 ML SDV IVPUSH STA (09:00)
[2022-05-12] MEDS ORDERED: Thiamine 200 MG/2 ML MDV IVPUSH ONE (09:00)
[2022-05-12] MEDS ORDERED: LORazepam 2 MG/ML SDV IVPUSH STA (09:00)
[2022-05-12] MEDS ORDERED: Morphine 4 MG/ML VIAL IVPUSH ONE (09:34)
[2022-05-12] MEDS ORDERED: Prochlorperazine 10 MG in Sodium Chloride 0.9% 50 ML IV ONE (09:34)
[2022-05-12 10:10] LABS: ESTIMATED GFR 129 mL/min (>60)
[2022-05-12] MEDS ORDERED: Iopamidol 755 Mg/ML 75 ML Bottle IV ONE (10:46)
[2022-05-12] MEDS ORDERED: LORazepam 2 MG/ML SDV IVPUSH PRN ×2 (11:53→15:00)
[2022-05-12] MEDS ORDERED: Ondansetron 4 MG/2 ML SDV IV PRN (13:00)
[2022-05-12] MEDS: Multivitamin Tab PO SCH (13:22)
[2022-05-12] MEDS: Enoxaparin 40 MG/0.4 ML Syringe SUBCUT SCH (13:24)
[2022-05-12] MEDS: Pantoprazole 40 MG Vial IVPUSH SCH (13:24)
[2022-05-12] MEDS: Morphine 4 MG/ML VIAL IVPUSH PRN ×2 (13:30→20:17)
[2022-05-12] MEDS ORDERED: LORazepam 1 MG Tab PO SCH (14:15)
[2022-05-12] MEDS ORDERED: Prochlorperazine 10 MG in Sodium Chloride 0.9% 50 ML IV PRN (16:00)
[2022-05-12] MEDS: ClonazePAM 0.5 MG Tab PO PRN (20:34)
[2022-05-13] MEDS: Sodium Chloride 0.9% 1,000 ML IV SCH ×5 (00:46→21:55)
[2022-05-13] MEDS: Morphine 4 MG/ML VIAL IVPUSH PRN ×5 (00:53→22:22)
[2022-05-13 06:56] LABS: ESTIMATED GFR 119 mL/min (>60)
[2022-05-13] MEDS ORDERED: diphenhydrAMINE 50 MG/ML SDV IVPUSH PRN (09:01)
[2022-05-13] MEDS: Multivitamin Tab PO SCH (09:30)
[2022-05-13] MEDS: Enoxaparin 40 MG/0.4 ML Syringe SUBCUT SCH (13:36)
[2022-05-13] MEDS: Pantoprazole 40 MG Vial IVPUSH SCH (13:36)
[2022-05-13] MEDS: ClonazePAM 0.5 MG Tab PO PRN (13:52)
[2022-05-14] MEDS: Sodium Chloride 0.9% 1,000 ML IV SCH (04:26)
[2022-05-14 07:16] LABS: ESTIMATED GFR 129 mL/min (>60)
[2022-05-14] MEDS: Multivitamin Tab PO SCH (08:23)
== END 2022-05-14 10:05 | disposition home or self-care (01) | DRG 439 ==
LOC: FB.ED 08:41 → FB.MS 11:46 → OBSVTOIN 05-13 09:03
PROVIDERS: ADMIT Emergency Medicine; ATTEND Family Medicine
DX: K85.20 Alcohol induced acute pancreatitis without necrosis or infection (principal); F10.288 Alcohol dependence with other alcohol-induced disorder; I10 Essential (primary) hypertension; K29.20 Alcoholic gastritis without bleeding; K70.9 Alcoholic liver disease, unspecified; Z79.899 Other long term (current) drug therapy; Y90.0 Blood alcohol level of less than 20 mg/100 ml
CPT/HCPCS: 36415; 71045; 74177; 80048; 80053; 80307; 82150; 83690; 83735; 84100; 85025; 96360; 96361; 99285-25; A9270-GY; C9113; J0780; J1200; J1650; J2060; J2270; J2405; J3411; J3490; J7030; Q9967